=== PATIENT | female | born 1970 | race Caucasian/White ===

== ENCOUNTER 2016-06-11 11:04 | Emergency (ER) | payer OTHER ==
[2016-06-11] MEDS ORDERED: OPTIRAY 350 100 ML VIAL HMH IV ONE (11:05)
[2016-06-11] MEDS ORDERED: MULTIVITS ADULT INJ 10 ML, THIAMINE 100 MG, FOLIC ACID INJ 1 MG in SODIUM CHLORIDE 0.9%... IV ONE ×3 (12:05)
[2016-06-11] MEDS ORDERED: NICOTINE 21 MG/24 HR TRANSDERM ONE (12:09)
[2016-06-11] MEDS ORDERED: DIAZEPAM 10 MG/2 ML SYR ONE ×3 (12:23→18:16)
[2016-06-11] MEDS ORDERED: SODIUM CHLORIDE 0.9% 100 ML IV ONE (16:06)
[2016-06-11] MEDS ORDERED: CEFTRIAXONE 1 GM VIAL ONE (16:06)
[2016-06-11] MEDS ORDERED: ACETAMINOPHEN 325 MG TAB ONE (16:33)
[2016-06-11] MEDS ORDERED: ONDANSETRON 4 MG VIAL ONE ×2 (16:33→19:52)
== END 2016-06-11 20:49 ==
LOC: ER 11:04
DX: J15.9 Unspecified bacterial pneumonia (principal); F10.129 Alcohol abuse with intoxication, unspecified; F11.129 Opioid abuse with intoxication, unspecified; Y90.8 Blood alcohol level of 240 mg/100 ml or more; K86.9 Disease of pancreas, unspecified; F17.200 Nicotine dependence, unspecified, uncomplicated
CPT/HCPCS: 36415; 74177; 80053; 80307; 80320; 80329; 81001; 84439; 84443; 85025; 85610; 87077; 87088; 87186; 96365; 96367; 96375; 96376